=== PATIENT | male | born 1990 | race African-American/Black ===

== ENCOUNTER 2023-04-19 02:04 | Emergency (ER) | payer OTHER ==
[~2023-04-19] VITALS: Ht 172.7 cm; Wt 75.0 kg
[2023-04-19] MEDS ORDERED: LORAZEPAM 2MG/ML INJ IV ONE (02:15)
[2023-04-19] MEDS ORDERED: SODIUM CHLORIDE 0.9% 1,000 ML IV ONE (02:15)
[2023-04-19] MEDS ORDERED: LEVETIRACETAM 1000MG PREMIX 100 ML IV ONE (02:15)
[2023-04-19 02:18] VITALS: O2SAT 98
[2023-04-19 02:37] LABS: BASOPHILS % 0.4 % (0.0-2.0); DIFFERENTIAL COMMENT 0; EOSINOPHILS % 0.4 % (0.0-5.0); HEMATOCRIT. 54.8 % (42.0-52.0); HEMOGLOBIN. 16.6 g/dL (14.0-18.0); LYMPHOCYTES % 30.8 % (20.0-50.0); MEAN CORPUSCULAR HEMOGLOBIN 28.2 pg (28.0-32.0); MEAN CORPUSCULAR HGB CONC 30.3 g/dL (31.0-37.0); MEAN CORPUSCULAR VOLUME 93.1 fL (80.0-94.0); MEAN PLATELET VOLUME 10.9 fl (7.4-10.4); NEUTROPHILS % 60.4 % (40.0-76.0); PLATELET 211 x1000/uL (130-400); RED BLOOD CELL COUNT 5.88 mill/uL (4.7-6.1); RED CELL DISTRIBUTION WIDTH 15.3 % (11.6-14.6); WHITE BLOOD COUNT 14.2 x1000/uL (4.5-11.0)
[2023-04-19] MEDS ORDERED: LORAZEPAM 2MG/ML UD SYRINGE IV NR (02:45)
[2023-04-19] MEDS ORDERED: LORAZEPAM 2MG/ML INJ IV NR (02:45)
[2023-04-19 02:49] LABS: ALANINE AMINOTRANSFERASE 21 IU/L (10-49); ALBUMIN 5.1 g/dL (3.2-4.8); ASPARTATE AMINOTRANSFERASE 30 IU/L (<34); BILIRUBIN TOTAL 0.5 mg/dL (0.1-1.0); CHLORIDE 102 mEq/L (98-107); CREATININE 1.5 mg/dL (0.6-1.3); GLUCOSE 195 mg/dL (70-105); POTASSIUM 3.4 mEq/L (3.5-5.1); PROTEIN TOTAL 9.4 g/dL (6.0-8.3); SODIUM 140 mEq/L (136-145); UREA NITROGEN BLOOD 15 mg/dL (9-23)
[2023-04-19 02:57] LABS: ETHANOL BLOOD < 10 mg/dL (<10)
[2023-04-19 02:58] LABS: CARBON DIOXIDE < 10 mEq/L (21-32)
[2023-04-19] MEDS ORDERED: SODIUM BICARBONATE 8.4% 1 MEQ/ML 50ML SYR IV ONE (03:00)
[2023-04-19] MEDS ORDERED: MIDAZOLAM HCL 2 MG/2 ML VIAL IM ONE (05:15)
[2023-04-19 05:19] LABS: LACTIC ACID 20.8 mmol/L (0.4-2.0)
[2023-04-19] MEDS ORDERED: MIDAZOLAM HCL 2 MG/2 ML VIAL IM NR (05:30)
[2023-04-19 06:05] LABS: CALCIUM 9.1 mg/dL (8.7-10.4); CARBON DIOXIDE 25 mEq/L (21-32); CHLORIDE 104 mEq/L (98-107); CREATININE 1.3 mg/dL (0.6-1.3); GLUCOSE 119 mg/dL (70-105); POTASSIUM 3.9 mEq/L (3.5-5.1); SODIUM 138 mEq/L (136-145); UREA NITROGEN BLOOD 14 mg/dL (9-23)
[2023-04-19 09:00] VITALS: TEMP 98.2
[2023-04-19 09:18] VITALS: BP 118/60; PULSE 84; RESP 20
== END 2023-04-19 09:30 | disposition short-term general hospital (02) ==
LOC: ER 02:04
DX: G40.901 Epilepsy, unspecified, not intractable, with status epilepticus (principal); E87.20 Acidosis, unspecified; N28.9 Disorder of kidney and ureter, unspecified
CPT/HCPCS: 80053; 80048; 80320; 83605; 85025; 36415; 70450; 96365; 96375; 99285; J1953; J2060; J3490; J7030; G0480

== ENCOUNTER 2024-02-26 10:08 | Inpatient (IN) | payer OTHER ==
[~2024-02-26] VITALS: Ht 213.4 cm; Wt 36.3 kg
[2024-02-26] MEDS: LEVETIRACETAM 1000MG PREMIX 100 ML IV ONE (10:38)
[2024-02-26 10:52] LABS: BASOPHILS % 0.5 % (0.0-2.0); HEMATOCRIT. 47.4 % (42.0-52.0); HEMOGLOBIN. 15.3 g/dL (14.0-18.0); LYMPHOCYTES % 42.3 % (20.0-50.0); MEAN CORPUSCULAR HEMOGLOBIN 29.5 pg (28.0-32.0); MEAN CORPUSCULAR HGB CONC 32.2 g/dL (31.0-37.0); MEAN CORPUSCULAR VOLUME 91.6 fL (80.0-94.0); MONOCYTES % 7.5 % (2.0-8.0); NEUTROPHILS % 47.7 % (40.0-76.0); PLATELET 179 x1000/uL (130-400); RED BLOOD CELL COUNT 5.18 mill/uL (4.7-6.1); RED CELL DISTRIBUTION WIDTH 14.1 % (11.6-14.6); WHITE BLOOD COUNT 10.6 x1000/uL (4.5-11.0)
[2024-02-26 11:01] LABS: CHLORIDE 102 mEq/L (98-107); POTASSIUM 4.2 mEq/L (3.5-5.1); SODIUM 135 mEq/L (136-145)
[2024-02-26 11:02] LABS: CALCIUM 9.9 mg/dL (8.7-10.4); CARBON DIOXIDE 17 mEq/L (21-32)
[2024-02-26 11:07] LABS: CREATININE 1.3 mg/dL (0.6-1.3); GLUCOSE 150 mg/dL (70-105); UREA NITROGEN BLOOD 13 mg/dL (9-23)
[2024-02-26 11:08] LABS: ETHANOL BLOOD < 10 mg/dL (<10)
[2024-02-26] MEDS: LORAZEPAM 2MG/ML INJ IV ONE ×2 (11:51→13:10)
[2024-02-26 12:54] VITALS: PULSE 86; RESP 20; TEMP 98.2
[2024-02-26] MEDS: ONDANSETRON HCL 4MG/2ML INJ IV ONE (13:10)
[2024-02-26] MEDS ORDERED: GUAIFENESIN 200MG/10ML SUGAR FREE UDC PO PRN (13:45)
[2024-02-26] MEDS ORDERED: CLONIDINE 0.1MG TABLET PO PRN (13:45)
[2024-02-26] MEDS ORDERED: LORAZEPAM 2MG/ML INJ IV PRN (13:45)
[2024-02-26] MEDS ORDERED: DOCUSATE SODIUM 100MG CAPSULE PO PRN (13:45)
[2024-02-26] MEDS ORDERED: ACETAMINOPHEN 325MG TABLET PO PRN ×2 (13:45)
[2024-02-26] MEDS ORDERED: IPRATROPIUM/ALBUTEROL 0.5-3(2.5)MG/3ML NEB HHN PRN (13:45)
[2024-02-26] MEDS ORDERED: DEXT 5%/0.45% NACL 1000ML 1,000 ML IV SCH (14:00)
[2024-02-26] MEDS: ENOXAPARIN 40MG/0.4ML SYR SUBCUT SCH (14:13)
[2024-02-26] MEDS: FOLIC ACID 1 MG, THIAMINE HCL 100 MG, MVI, ADULT NO.1 10 ML in DEXTROSE 5% WATER 1,000 ML IV ONE (14:31)
[2024-02-26] MEDS: ONDANSETRON HCL 4MG/2ML INJ IV PRN (19:03)
[2024-02-26] MEDS ORDERED: LEVETIRACETAM 1,000MG in NACL 100ML PREMIX IV SCH (21:00)
[2024-02-26] MEDS ORDERED: LEVETIRACETAM 500MG in NACL 100ML PREMIX IV SCH (21:00)
[2024-02-26] MEDS ORDERED: LEVETIRACETAM 500MG PREMIX 100ML IV SCH (21:00)
[2024-02-26] MEDS: LEVETIRACETAM 1000MG PREMIX 100 ML IV SCH (22:00)
[2024-02-26 22:11] LABS: TROPONIN I HIGH SENSITIVITY 33 ng/L (3.0-53)
[2024-02-26 22:12] LABS: ALBUMIN 4.6 g/dL (3.2-4.8)
[2024-02-26 22:22] LABS: CREATINE KINASE 1327 IU/L (46-171)
[2024-02-26 23:35] VITALS: BP 130/74; PULSE 77; RESP 20; TEMP 36.4736
[2024-02-27] VITALS: BP 130/74; PULSE 78; TEMP 36.44736; O2SAT 98
[2024-02-27] MEDS ORDERED: LEVE1000 PO (01:13)
[2024-02-27 04:00] VITALS: BP 123/74; PULSE 95; TEMP 37.05852; O2SAT 98
[2024-02-27 07:04] LABS: HEMATOCRIT 45.5 % (42.0-52.0); HEMOGLOBIN 14.7 g/dL (14.0-18.0); MEAN CORPUSCULAR HEMOGLOBIN 28.4 pg (28.0-32.0); MEAN CORPUSCULAR HGB CONC 32.2 g/dL (31.0-37.0); MEAN CORPUSCULAR VOLUME 88.1 fL (80.0-94.0); PLATELET 165 x1000/uL (130-400); RED BLOOD CELL COUNT 5.16 mill/uL (4.7-6.1); RED CELL DISTRIBUTION WIDTH 13.8 % (11.6-14.6); WHITE BLOOD COUNT 13.8 x1000/uL (4.5-11.0)
[2024-02-27 08:00] VITALS: BP 126/70; PULSE 90; RESP 18; TEMP 36.61404; O2SAT 96
[2024-02-27 08:08] VITALS: BP 126/70; PULSE 90; RESP 18; TEMP 36.55848; O2SAT 96
[2024-02-27 11:56] VITALS: BP 148/86; PULSE 84; RESP 18; TEMP 36.44736; O2SAT 100
[2024-02-27] MEDS: POTASSIUM CHLORIDE 20MEQ TABLET SR PO NR (14:06)
[2024-02-27 15:40] VITALS: BP 136/84; PULSE 88; TEMP 98.6; O2SAT 96
[2024-02-27 15:49] LABS: CHLORIDE 104 mEq/L (98-107); POTASSIUM 3.5 mEq/L (3.5-5.1); SODIUM 133 mEq/L (136-145)
[2024-02-27 15:50] LABS: CALCIUM 9.1 mg/dL (8.7-10.4); CARBON DIOXIDE 20 mEq/L (21-32)
[2024-02-27 15:55] LABS: GLUCOSE 101 mg/dL (70-105); UREA NITROGEN BLOOD 20 mg/dL (9-23)
[2024-02-27 15:57] LABS: ALANINE AMINOTRANSFERASE 23 IU/L (10-49); ALBUMIN 4.4 g/dL (3.2-4.8); ASPARTATE AMINOTRANSFERASE 101 IU/L (<34); BILIRUBIN DIRECT 0.1 mg/dL (<=3.0); TROPONIN I HIGH SENSITIVITY 22 ng/L (3.0-53)
[2024-02-27 15:58] LABS: BILIRUBIN TOTAL 0.4 mg/dL (0.1-1.0); PROTEIN TOTAL 7.4 g/dL (6.0-8.3)
[2024-02-27 16:03] LABS: CREATININE 4.6 mg/dL (0.6-1.3)
== END 2024-02-27 16:00 | disposition left against medical advice (07) | DRG 101 ==
LOC: ER 10:08 → 8WST 12:09 → EDBEDREQTM 12:34 → EDBEDREQ 12:34
PROVIDERS: ADMIT Internal Medicine; ATTEND Internal Medicine
DX: G40.901 Epilepsy, unspecified, not intractable, with status epilepticus (principal); K59.00 Constipation, unspecified; Z91.148 Patient's other noncompliance with medication regimen for other reason; Z53.29 Procedure and treatment not carried out because of patient's decision for other reasons
CPT/HCPCS: 36415; 80048; 80076; 80320; 82040; 82542; 82550; 84484; 85025; 85027; 93970; 99291; J3411; J3490; J7070; G0480